=== PATIENT | female | born 1975 | race African-American/Black ===

== ENCOUNTER 2016-05-23 16:20 | Emergency (ER) | payer MEDICAID ==
[~2016-05-23] VITALS: Ht 157.5 cm; Wt 108.9 kg
[2016-05-23 16:35] VITALS: BP 111/60
== END 2016-05-24 01:00 | disposition left against medical advice (07) ==
LOC: ER 16:27
DX: R10.9 Unspecified abdominal pain (principal); R11.2 Nausea with vomiting, unspecified; Z53.21 Procedure and treatment not carried out due to patient leaving prior to being seen by health care provider

== ENCOUNTER 2016-08-02 13:50 | Emergency (ER) | payer MEDICAID ==
[~2016-08-02] VITALS: Ht 165.1 cm; Wt 52.2 kg
[2016-08-02 15:40] LABS: Basophils # (auto) 0 uL; Basophils % (auto) 0.4 % (0.0-2.0); Eosinophils # (auto) 0.1 uL; Eosinophils % (auto) 1.1 % (0.0-7.0); Hematocrit 36.7 % (36.0-46.0); Hemoglobin 11.9 g/dL (12.2-16.2); Lymphocytes # (auto) 1.3 uL; Lymphocytes % (auto) 23.2 % (10.0-50.0); Mean Corpuscular Hemoglobin 28.5 pg (28.0-32.0); Mean Corpuscular Hgb Conc. 32.5 g/dL (32.0-36.0); Mean Corpuscular Volume 87.7 fL (80.0-100.0); Mean Platelet Volume 7.9 fL (7.4-10.4); Monocytes # (auto) 0.3 uL; Monocytes % (auto) 5.6 % (0.0-12.0); Neutrophils # (auto) 3.9 uL; Neutrophils % (auto) 69.7 % (37.0-80.0); Platelet Count (auto) 390 10^3/uL (140-450); Red Cell Distribution Width 12.9 % (11.6-16.0); White Blood Cell 5.6 10^3/uL (4.4-10.8)
[2016-08-02 16:03] LABS: Albumin 3.6 g/dL (3.4-5.0); Alkaline Phosphatase 199 U/L (45-117); Anion Gap 8 (5-15); Aspartate Aminotransferase 274 U/L (15-37); BUN/Creatinine Ratio 11.4; Bilirubin, Total 0.4 mg/dL (0.2-1.0); Blood Urea Nitrogen 9 mg/dL (7-18); Calcium 8.6 mg/dL (8.5-10.1); Carbon Dioxide 29 mmol/L (21-32); Chloride 106 mmol/L (98-107); GFR African American 103 mL/min; GFR Non-African American 85 mL/min; Glucose 94 mg/dL (74-106); Potassium 3.9 mmol/L (3.5-5.1); Sodium 143 mmol/L (136-145); Total Protein 8.1 g/dL (6.4-8.2)
[2016-08-02 18:25] LABS: Urine Bilirubin Negative (Negative); Urine Blood Negative /uL (Negative); Urine Color Yellow (Yellow); Urine Glucose Normal (Normal); Urine Hyaline Cast FEW /lpf (0 - 2); Urine Ketone Negative (Negative); Urine Mucus FEW (None Seen); Urine Nitrite Negative (Negative); Urine RBC 1 /hpf (0 - 4); Urine Squamous Epithelial Cell FEW /hpf (<5); Urine Urobilinogen Normal (Negative); Urine pH 5.5 (5.0-8.0)
[2016-08-02] MEDS ORDERED: HYDROcodone-ACET 5/325MG TAB PO ONE (20:00)
[2016-08-02 21:15] VITALS: BP 112/67
== END 2016-08-02 21:20 | disposition hospice, inpatient (51) ==
LOC: EDBD 13:50 → ER 13:50
DX: R55 Syncope and collapse (principal); N39.0 Urinary tract infection, site not specified; R94.5 Abnormal results of liver function studies; Z87.442 Personal history of urinary calculi
CPT/HCPCS: 36415; 70450; 76705; 80053; 81001; 81025; 82962; 84484; 85025; 93005